=== PATIENT | male | born 1950 | race Caucasian/White ===

== ENCOUNTER 2021-02-05 15:04 | Emergency (ER) | payer BC ==
[2021-02-05 16:08] VITALS: BP 91/71; PULSE 55; TEMP 98
[2021-02-05 19:19] VITALS: RESP 18
[2021-02-05] MEDS ORDERED: SODIUM CHLORIDE 0.9% 1,000 ML IV STA (19:21)
[2021-02-05] MEDS ORDERED: ACETAMINOPHEN TAB 325 MG TAB PO STA (19:28)
--- NOTE | 2021-02-05 19:31 | ED ---
General Adult HPI - General Chief complaint: Dizziness Stated complaint: Dizziness, Light headed Time Seen by Provider: 02/05/21 19:20 Source: patient, RN notes reviewed, old records reviewed Mode of arrival: ambulatory Limitations: no limitations - History of Present Illness Initial comments: 70-year-old male, alert and oriented 4, presents to the emergency room with complaints of weakness and dizziness and generalized malaise for the past 2 weeks. Patient states he has been vaccinated against coronavirus and received a booster. He states that for the past 2 weeks he has had these symptoms on and off. He has a history of hypertension he is a nonsmoker. He does take metoprolol for his blood pressure. -: week(s) (2) Severity scale (1-10): 0 Associated Symptoms: malaise, weakness, other (dizziness) Treatments Prior to Arrival: none - Related Data Home Medications Medication Instructions Recorded Confirmed Meloxicam 7.5 mg PO BID 02/05/21 02/05/21 Metoprolol Succinate (ER) [Toprol 12.5 mg PO BID 02/05/21 02/05/21 XL] Allergies Allergy/AdvReac Type Severity Reaction Status Date / Time No Known Allergies Allergy Verified 02/05/21 20:06 Review of Systems ROS Statement: Those systems with pertinent positive or pertinent negative responses have been documented in the HPI. ROS Other: All systems not noted in ROS Statement are negative. Past Medical History Past Medical History: Hypertension History of Any Multi-Drug Resistant Organisms: None Reported Past Surgical History: No Surgical Hx Reported Past Psychological History: No Psychological Hx Reported Smoking Status: Never smoker Past Alcohol Use History: None Reported Past Drug Use History: None Reported General Exam Limitations: no limitations General appearance: alert, in no apparent distress Head exam: Present: atraumatic, normocephalic, normal inspection Eye exam: Present: normal appearance, EOMI. Absent: scleral icterus, conjunctival injection, periorbital swelling, periorbital tenderness ENT exam: Present: normal exam, normal oropharynx, mucous membranes moist Neck exam: Present: normal inspection, full ROM. Absent: tenderness, meningismus, lymphadenopathy, thyromegaly Respiratory exam: Present: normal lung sounds bilaterally. Absent: respiratory distress, wheezes, rales, rhonchi, stridor, chest wall tenderness, accessory muscle use, decreased breath sounds Cardiovascular Exam: Present: bradycardia. Absent: JVD GI/Abdominal exam: Present: soft, normal bowel sounds. Absent: distended, tenderness, guarding, rebound, rigid Extremities exam: Present: normal inspection, full ROM, normal capillary refill. Absent: tenderness, pedal edema, joint swelling, calf tenderness Back exam: Present: normal inspection, full ROM. Absent: tenderness, CVA tenderness (R), CVA tenderness (L), rash noted Neurological exam: Present: alert, oriented X3, normal gait Psychiatric exam: Present: normal affect, normal mood Skin exam: Present: warm, dry, intact, normal color. Absent: rash, cyanosis, diaphoretic, petechiae, pallor Course Vital Signs 02/05/21 02/05/21 16:04 19:16 Temperature 98.0 F Pulse Rate 55 L Respiratory 20 18 Rate Blood Pressure 91/71 O2 Sat by Pulse 98 Oximetry Medical Decision Making - Medical Decision Making 70-year-old male, alert and oriented 4, presents to the emergency room with complaints of weakness and dizziness and generalized malaise for the past 2 weeks. He states that for the past 2 weeks he has had these symptoms on and off. He has a history of hypertension, he is a nonsmoker. He does take metoprolol for his blood pressure. He has been vaccinated against coronavirus and received a booster. He denies any chest pain or difficulty in breathing. He is covid positive in the ER. Labs were ordered, however per nurse the patient eloped stating he didn't want to wait any longer. - Lab Data Lab Results 02/05/21 Range/Units 16:18 Coronavirus (PCR) Detected A (Not Detectd) Disposition Clinical Impression: COVID-19 Disposition: Left Against Medical Advice Is patient prescribed a controlled substance at d/c from ED?: No Referrals: Merlin Laguerre DO [Primary Care Provider] - 1-2 days Time of Disposition: 22:53
== END 2021-02-05 20:08 | disposition left against medical advice (07) ==
LOC: EC 15:04
DX: U07.1 COVID-19 (principal); I10 Essential (primary) hypertension
CPT/HCPCS: 87635; 93005; 99284